=== PATIENT | male | born 1940 | race Hispanic/Latino ===

== ENCOUNTER → 2018-09-29 | Outpatient (CLI) | payer MEDICARE | END | disposition home or self-care (01) | LOC: OIH 10:04 | PROVIDERS: ATTEND Internal Medicine | DX: J44.9 Chronic obstructive pulmonary disease, unspecified (principal); J20.8 Acute bronchitis due to other specified organisms; R91.8 Other nonspecific abnormal finding of lung field; M47.895 Other spondylosis, thoracolumbar region | CPT/HCPCS: 71046 ==